=== PATIENT | male | born 1990 | race Two or more races ===

== ENCOUNTER 2021-03-28 05:42 | Emergency (ER) | payer OTHER ==
[~2021-03-28] VITALS: Ht 172.7 cm; Wt 99.2 kg
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
[2021-03-28 06:41] VITALS: BP 109/75
== END 2021-03-28 06:47 | disposition home or self-care (01) ==
LOC: ER 05:42
DX: R07.81 Pleurodynia (principal); V49.49XA Driver injured in collision with other motor vehicles in traffic accident, initial encounter; Y93.I9 Activity, other involving external motion; Y92.89 Other specified places as the place of occurrence of the external cause; Y99.8 Other external cause status
CPT/HCPCS: 99283